=== PATIENT | female | born 1985 | race African-American/Black ===

== ENCOUNTER 2016-11-29 10:51 | Emergency (ER) | payer MEDICAID ==
[~2016-11-29] VITALS: Ht 154.9 cm; Wt 64.0 kg
[2016-11-29] MEDS ORDERED: IBUPROFEN 600MG TABLET PO ONE (13:30)
[2016-11-29 13:41] VITALS: BP 125/89
== END 2016-11-29 16:01 | disposition home or self-care (01) ==
LOC: ER 10:52
DX: S90.31XA Contusion of right foot, initial encounter (principal); F17.200 Nicotine dependence, unspecified, uncomplicated; Z98.890 Other specified postprocedural states; W22.8XXA Striking against or struck by other objects, initial encounter; Y93.01 Activity, walking, marching and hiking; Y99.8 Other external cause status; Y92.89 Other specified places as the place of occurrence of the external cause
CPT/HCPCS: 73610; 73630; 81025; 99284

== ENCOUNTER 2017-07-07 07:39 | Emergency (ER) | payer MEDICAID ==
[~2017-07-07] VITALS: Ht 154.9 cm; Wt 53.0 kg
[2017-07-07] MEDS ORDERED: IPRATROPIUM BROMIDE (0.02%) 0.5MG/2.5ML NEB HHN STA (08:02)
[2017-07-07] MEDS ORDERED: METHYLPREDNISOLONE SOD SUCC 125 MG/2 ML VIAL IM STA (08:02)
[2017-07-07] MEDS ORDERED: ALBUTEROL (0.083%) 2.5MG/3ML NEB HHN STA (08:02)
[2017-07-07 08:20] VITALS: BP 134/93
[2017-07-07] MEDS ORDERED: ALBUTEROL (0.083%) 2.5MG/3ML NEB ONE (08:52)
[2017-07-07] MEDS ORDERED: IPRATROPIUM BROMIDE (0.02%) 0.5MG/2.5ML NEB ONE (08:52)
[2017-07-07 09:01] LABS: KETONES URINE 2+ (NEGATIVE); LEUKOCYTE ESTERASE URINE NEGATIVE (NEGATIVE); NITRITE URINE NEGATIVE (NEGATIVE); OCCULT BLOOD URINE NEGATIVE (NEGATIVE); PH URINE 6.5 (4.5-8.0); PROTEIN URINE 2+ (NEGATIVE); SPECIFIC GRAVITY URINE 1.031 (1.005-1.030)
[2017-07-07 09:06] LABS: CLARITY URINE SL HAZY (CLEAR); COLOR URINE DARK YELLOW (YELLOW)
== END 2017-07-07 10:50 | disposition home or self-care (01) ==
LOC: ER 07:39
DX: J06.9 Acute upper respiratory infection, unspecified (principal); J45.901 Unspecified asthma with (acute) exacerbation; F17.200 Nicotine dependence, unspecified, uncomplicated; Z91.040 Latex allergy status
CPT/HCPCS: 81001; 81025; 94640; 96372; 99283; J2930; J7611; Z7610

== ENCOUNTER 2017-09-08 07:38 | Emergency (ER) | payer MEDICAID ==
[~2017-09-08] VITALS: Ht 160 cm; Wt 56.0 kg
[2017-09-08] MEDS ORDERED: HYDROCODONE/ACETAMINOPHEN 5/325MG TABLET PO ONE (08:15)
[2017-09-08] MEDS ORDERED: BUPIVACAINE HCL/PF 0.25% (2.5MG/ML) 10ML INFIL ONE (08:15)
[2017-09-08] MEDS ORDERED: TETANUS, DIPHTHERIA, PERTUSSIS VAC/PF 0.5ML (>7YR OLD) IM ONE (08:15)
[2017-09-08] MEDS ORDERED: LIDOCAINE HCL 1% 20ML VIAL (Pyxis) INJ INFIL ONE (08:15)
[2017-09-08] MEDS ORDERED: CEPHALEXIN 500MG CAPSULE PO ONE (08:30)
[2017-09-08] MEDS: LIDOCAINE HCL/PF 1% 10 MG/ML 5ML VIAL INL NR ×3 (09:00→09:37)
[2017-09-08 10:52] VITALS: BP 128/81
== END 2017-09-08 11:07 | disposition short-term general hospital (02) ==
LOC: ER 08:01
DX: S68.627A Partial traumatic transphalangeal amputation of left little finger, initial encounter (principal); F12.10 Cannabis abuse, uncomplicated; Z91.040 Latex allergy status; W23.0XXA Caught, crushed, jammed, or pinched between moving objects, initial encounter; Y93.89 Activity, other specified; Y92.89 Other specified places as the place of occurrence of the external cause; Y99.8 Other external cause status
CPT/HCPCS: 64450; 73140; 90471; 90715; 99285; J3490; Z7610

== ENCOUNTER 2021-04-20 08:39 | Emergency (ER) | payer MEDICAID ==
[~2021-04-20] VITALS: Ht 157.5 cm; Wt 80.0 kg
[2021-04-20 09:25] VITALS: BP 130/79
[2021-04-20] MEDS ORDERED: IBUPROFEN 600MG TABLET PO ONE (09:30)
[2021-04-20] MEDS ORDERED: AMOXICILLIN/POTASSIUM CLAVULANATE 875/125MG TAB PO ONE (09:30)
[2021-04-20] MEDS ORDERED: AMOX-424 MT (10:48)
== END 2021-04-20 11:18 | disposition home or self-care (01) ==
LOC: ER 08:45
DX: S60.413A Abrasion of left middle finger, initial encounter (principal); M79.641 Pain in right hand; M79.642 Pain in left hand; M25.531 Pain in right wrist; Y04.0XXA Assault by unarmed brawl or fight, initial encounter; Y93.89 Activity, other specified; Y92.89 Other specified places as the place of occurrence of the external cause
CPT/HCPCS: 73110; 73130; 99284